=== PATIENT | female | born 1955 | race Native Hawaiian/Other Pacific Islander ===

== ENCOUNTER 2016-07-24 06:15 | Observation (INO) | payer MEDICAID ==
[2016-07-24 06:20] VITALS: BMI 23.9
[2016-07-24] MEDS ORDERED: ePHEDrine 50 mg/ml Inj ONE (07:04)
[2016-07-24] MEDS ORDERED: Propofol 10 mg/ml Inj (20 ML) ONE (07:04)
[2016-07-24] MEDS ORDERED: Midazolam 2 MG/2 ML VIAL ONE (07:04)
[2016-07-24] MEDS ORDERED: Rocuronium 10 mg/ml (5 ml) ONE (07:05)
[2016-07-24] MEDS ORDERED: Succinylcholine 200 mg/10 ml Inj IV ONE (07:05)
[2016-07-24] MEDS ORDERED: Lidocaine 4% (Laryng-O-Jet) Kit MM ONE (07:06)
[2016-07-24] MEDS ORDERED: Neostigmine Methylsulfate 2 MG/2 ML ML IV ONE (07:06)
[2016-07-24] MEDS ORDERED: Neostigmine Methylsulfate 3mg/3ml Syringe IV ONE (07:06)
[2016-07-24] MEDS ORDERED: Bupivacaine 0.25%-Epinephrine 1:200,000 (30 ml) Inj ONE (07:24)
[2016-07-24] MEDS ORDERED: Lactated Ringer's 1,000 ML IV ONE ×2 (07:55→08:05)
[2016-07-24] MEDS ORDERED: Dexamethasone 4 mg/1 ml ONE (08:19)
[2016-07-24] MEDS ORDERED: HEMOSTATIC MATRIX 10 ML DIS.NEEDLE TOP ONE ×2 (08:30→09:20)
[2016-07-24] MEDS ORDERED: HYDROmorphone 0.5 mg/0.5 ml ISec IVP PRN (09:56)
[2016-07-24] MEDS ORDERED: Oxycodone/Acetaminophen 5/325 mg Tab PO PRN (09:56)
[2016-07-24] MEDS ORDERED: Lactated Ringer's 1,000 ML IV SCH (10:00)
--- NOTE | 2016-07-24 10:08 | PCM.SURG1 ---
Surgeon's Initial Post Op Note - Surgeon's Notes Surgeon: ami buckner md [employer] Director: [email or web address] Type of Anesthesia: General Endo, Local Pre-Operative Diagnosis: chronic pelvic pain. fibroid uterus. prolapse uterus. urinary incontinence Operative Findings: bulky fibroid uterus, epical prolpase, normal appearing tubes and ovaries, normal anatomy otherwise, bladder hyperemic, conjested, ureters efluxing urine freely. . Detaiiled operative report. This is a 61 years old female with chronic pelvic pain, uterine fibroids and epical uterine prolapse and urinary incontinence. The patient completed an extensive preoperative workup, which included an ultrasound, as well as a pap smear, chemistry and hematology studies. A decision was finally made to proceed with a total robotic assisted hysterectomy, bilateral salpingophorectomy , and vaginal vault suspension. A detailed description of this robotic procedure was given to the patient, all risks and benefits of the surgical modality was reviewed, printed material was also given to the patient regarding robotic surgery. The patient fully understood all the risks and benefits and elected to proceed with this proposed procedure. After proper consent was obtained from the patient was taken to the operating room, proper patient identification was completed. She was placed in dorsal lithotomy position; general anesthesia was induced without difficulty. Her legs were placed in adjustable Felice stirrups. Careful attention was placed not to over-flex or over-rotate the lower extremities at the hip or the knee joints. She was prepped and draped appropriately for robotic assisted hysterectomy. Burrows catheter was inserted under sterile conditions. A weighted speculum was placed in the vagina, anterior lip of cervix was grasped with a tenaculum, and a V- care uterine manipulator was inserted through the cervix and secured. The weighted speculum and tenaculum were removed from the patient's vagina and attention was turned to the patient's abdomen. Local anesthetic solutions of 0.25% Marcaine with epinephrine were utilized to infiltrate the skin prior to all abdominal skin incisions. A total of 15 mL of 0.25% Marcaine was utilized throughout the procedure. While tenting the abdominal wall, a Veres needle was inserted through the umbilicus and a pneumoperitoneum was obtained. Approximately 1 cm above the umbilicus in the midline, a 1 cm incision was made with a scalpel and a trocar and sleeve were introduced. A robotic camera was inserted and an initial survey of the patient's abdomen revealed an anteverted uterus enlarged in size, large posterior fibroid noted. Both ovaries appeared normal with normal falopian tubes. The patient was placed in Trendelenburg position ready for a da Moncho robotic system to be docked. 2 robotic ports were utilized for this procedure. The first robotic port was placed on the patient's right side approximately 5 cm above the right superior iliac crest where a small skin incision approximately 8 mm was made. The second robotic port was in the patient's left side approximately 5 cm superior to the left superior iliac crest. A small incision approximately 1 cm was made in the suprapubic area and an podiatry assistant port was inserted. All robotic ports were approximately 8 mm in size, the podiatry assistant and the camera ports were 1 cm in size. For the podiatry assistant and camera ports we utilized the Versa-step trocar system. All trocars were inserted under direct visualization. The placement of the trocars was all accomplished under careful and meticulous placement under direct visualization. Following the placement of all trocars, the da Moncho robotic system was docked in a parallel method without difficulty. The following instruments were utilized for this procedure: the PK sealing device, a monopolar litzy and finally a ProGrasp. Prior to the start of the hysterectomy, both ureters and their courses were visualized, peristalsing without difficulty. On the patient's right side, the round ligament was identified cauterized and transected. The IP ligament was cauterized and transected. The broad ligament was divided all the way down to the utero cervical junction bladder flap was then created by transecting the visceroperitoneum over the bladder reflection. In a similar fashion, the left round ligament, IP ligament and broad ligament were cauterized sealed and transected, taken down to the level of the cervical uterine junction. Uterine vessels on both sides were sealed and transected. The Uterosacral ligaments were sealed and transected. The monopolar litzy and PK were utilized to complete the colpotomy incision around the care vaginal ring. Excellent hemostasis was noted. The uterus, cervix, ovaries and fallopian tubes were delivered transvaginaly through the colpotomy incision and sent to pathology for permanent analysis. The colpotomy incision was closed with 2-0 v LOC in a continuous fashion with excellent hemostasis. The vaginal vault suspension was achieved by suspending the vaginal cuff to the base of the uterosacral ligaments bilaterally. For uterosacral ligament suspension portion of the procedure, the ureters were once again identified to avoid possible compromise or kinking while suspending the vaginal vault. A 2-0 Goretex suture material was utilized to suspend the uterosacral ligaments from the base to the vaginal vault cuff incision including both anterior and posterior aspect of the colpotomy incision. Utilizing a 3-0 Monocryl suture, the peritoneum over the colpotomy incision and uterosacral ligaments was re-approximated in a continuous fashion. The abdomen was throughout irrigated and cleared of all clots and debris. FloSeal as well as Interceed was applied to the incision sites. Excellent hemostasis was again noted. All robotic and laparoscopic instruments removed under direct visualization. The robotic arms were undocked , and a da Moncho robotic system was wheeled away from the patient's bedside. Both podiatry assistant and camera ports were closed at the fascial layer utilizing a 2- 0 Vicryl suture serial in interrupted fashion. Pneumoperitoneum was reduced and all skin incisions were closed utilizing 4-0 Monocryl in a subcutaneous fashion. Dermabond was applied to all incisions. A diagnostic cystoscopy was completed. The Burrows catheter was removed; the bladder was distended with approximately 350 cc of normal saline. A 30 cystoscope was introduced and a survey of the bladder anatomy was completed. The base, and the dome of the bladder appeared normal, both ureteral orifices appeared normal and were efluxing urine freely. The urethra appeared normal. A Burrows catheter was reinserted. Patient emerged from general anesthesia without difficulty, and was taken to recovery room in stable condition. Prior to incision the patient received antibiotics, prior to closure sponge lap and needle counts were correct x2. Post-Operative Diagnosis: chronic pelvic pain. fibroid uterus. prolapse uterus. urinary incontinence Operation Performed: 1. total robotic hysterectomy bilateral salpingoophorectomy. 2. uretosacral ligament suspension. 3. cystoscopy Specimen/Specimens Removed: uterus, cervix tubes and ovaries Estimated Blood Loss: EBL {In ML}: 20 Blood Products Given: N/A Drains Used: No Drains Post-Op Condition: Good Date of Surgery/Procedure: 07/24/16 Time of Surgery/Procedure: 10:08
[2016-07-24] MEDS: HYDROmorphone 0.5 mg/0.5 ml ISec IVP PRN ×3 (11:05→11:55)
[2016-07-24] MEDS: Oxycodone/Acetaminophen 5/325 mg Tab PO PRN (20:19)
[2016-07-24 21:21] VITALS: RESP 20
[2016-07-25] MEDS: Oxycodone/Acetaminophen 5/325 mg Tab PO PRN (08:04)
[2016-07-25 09:10] VITALS: BP 134/54; PULSE 63; TEMP 98.2; O2SAT 98
[2016-07-25 11:15] LABS: BLOOD UREA NITROGEN 14 mg/dl (7-17); GFR AFRICAN-AMERICAN > 60; GLUCOSE,RANDOM 113 mg/dL (65-105)
[2016-07-25 11:16] LABS: CALCIUM 8.9 mg/dL (8.4-10.2); CARBON DIOXIDE 28 mmol/L (22-30); CHLORIDE 104 mmol/L (98-107); POTASSIUM 4.1 MMOL/L (3.6-5.0); SODIUM 138 mmol/l (132-148)
[2016-07-25 11:17] LABS: HEMATOCRIT 32.7 % (34.0-47.0); MEAN CORPUSCULAR HEMOGLOBIN 29.4 pg (27.0-31.0); RED CELL DISTRIBUTION WIDTH 12.7 % (11.5-14.5); WHITE BLOOD COUNT 13.4 K/uL (4.8-10.8)
--- NOTE | 2016-07-25 11:19 | CP.PCM.DIS ---
Provider - Provider Date of Admission: 07/24/16 19:08 Attending physician: Gabe Chatterjee MD Time Spent in preparation of Discharge (in minutes): 20 Diagnosis - Discharge Diagnosis (1) Uterine fibroid Status: Chronic (2) Pelvic pain in female Status: Chronic Hospital Course - Lab Results Lab Results: Most Recent Lab Values Blood Type O POSITIVE 07/24/16 06:30 Blood Type Confirm O POSITIVE 07/24/16 08:54 Antibody Screen Negative 07/24/16 06:30 BBK History Checked No verified bt 07/24/16 06:30 - Hospital Course Hospital Course: This is a 61 yo female patient with pmhx sign. for uterine fibroids and chronic pelvic pain who presented to [facility] 07/24/16 for scheduled surgery with Dr. Chatterjee. Patient underwent robotic total hysterectomy. Patient tolerated surgery well with no complications. Of note, pt had 1 episode of vomiting yesterday which was relieved with zofran. Pt seen and examined at the bedside this morning. Tolerating diet, voiding urine, passing flatus, no BM yet. Pt reports minimal pain to incision sites. Denies f/n/v/c/sob/cp at this time. Has been using incentive spirometer and OOB to ambulate. VSS. Stable form surgical standpoint for discharge home today. Discharge Exam - Eye Exam Eye Exam: EOMI, Normal appearance - Respiratory Exam Respiratory Exam: NORMAL BREATHING PATTERN. absent: Respiratory Distress - Cardiovascular Exam Cardiovascular Exam: REGULAR RHYTHM - GI/Abdominal Exam GI & Abdominal Exam: Soft, Tenderness (slight kathya-incisional tenderness ). absent: Firm, Guarding, Rebound, Rigid Additional comments: Incisions x 4 are c/d/i. No drainage, no surrounding erythema, normal skin temp - Psychiatric Exam Psychiatric exam: Normal Affect, Normal Mood - Skin Skin Exam: Normal Color, Warm Discharge Plan - Follow Up Plan Condition: GOOD Disposition: HOME/ ROUTINE Additional Instructions: -You have abdominal sutures which will absorb over time -May resume normal bathing -No heavy lifting -Take prescribed pain medication as needed. -Follow up w/ Dr. Chatterjee in the office in 2 weeks Referrals: FAMILY PROVIDER,NO [Family Provider] - Gabe Chatterjee MD [Staff Provider] -
== END 2016-07-25 13:40 | disposition home or self-care (01) ==
LOC: H.OPSURG 06:15 → H.PEDS 19:08
PROVIDERS: ADMIT Obstetrics & Gynecology; ATTEND Obstetrics & Gynecology
DX: D25.9 Leiomyoma of uterus, unspecified (principal); N81.4 Uterovaginal prolapse, unspecified; R32 Unspecified urinary incontinence; I10 Essential (primary) hypertension; E78.00 Pure hypercholesterolemia, unspecified; E03.9 Hypothyroidism, unspecified; K21.9 Gastro-esophageal reflux disease without esophagitis